=== PATIENT | female | born 1975 | race Caucasian/White ===

== ENCOUNTER 2018-07-08 18:17 | Outpatient (CLI) | payer OTHER | END 2018-07-08 18:18 | disposition home or self-care (01) | LOC: D.MAMMO 18:17 | DX: Z12.31 Encounter for screening mammogram for malignant neoplasm of breast (principal) ==

== ENCOUNTER → 2020-01-30 23:51 | Outpatient (CLI) | payer OTHER | END | disposition home or self-care (01) | LOC: D.MAMMO 10-16 13:15 | PROVIDERS: ATTEND Family Medicine | DX: Z12.31 Encounter for screening mammogram for malignant neoplasm of breast (principal) ==